=== PATIENT | male | born 1950 | race Caucasian/White ===

== ENCOUNTER 2021-01-30 14:18 | Emergency (ER) | payer MEDICARE, BC ==
[~2021-01-30] VITALS: Ht 182.9 cm; Wt 89.8 kg
[2021-01-30] MEDS ORDERED: NEURONTIN400 MG PO (15:04)
[2021-01-30] MEDS ORDERED: GLYBURIDE5 MG PO (15:04)
[2021-01-30] MEDS ORDERED: METFORMIN HCL500 M2 PO (15:04)
[2021-01-30] MEDS ORDERED: LOSARTAN POTASS25 MG PO (15:04)
[2021-01-30] MEDS ORDERED: HUMIRA40 MG/0.1 (15:04)
[2021-01-30] MEDS ORDERED: ULTRAM50 MG PO (15:04)
[2021-01-30] MEDS ORDERED: JARDIANCE10 MG (15:04)
[2021-01-30] MEDS ORDERED: TETANUS/DIPHTHERIA TOX ADULT 0.5 ML SYR IM ONE (15:30)
[2021-01-30] MEDS ORDERED: TETANUS/DIPHTHERIA TOX ADULT 0.5 ML SYR ONE (15:31)
== END 2021-01-30 16:18 | disposition home or self-care (01) ==
LOC: FSED 15:55
DX: S61.211A Laceration without foreign body of left index finger without damage to nail, initial encounter (principal); W26.0XXA Contact with knife, initial encounter; Y93.G3 Activity, cooking and baking; Y92.000 Kitchen of unspecified non-institutional (private) residence as the place of occurrence of the external cause; I10 Essential (primary) hypertension; E11.9 Type 2 diabetes mellitus without complications; L40.9 Psoriasis, unspecified
CPT/HCPCS: 90471; 90714; 96372; 99283

== ENCOUNTER 2021-09-16 12:30 | Emergency (ER) | payer MEDICARE, BC, OTHER ==
[~2021-09-16] VITALS: Ht 190.5 cm; Wt 86.2 kg
[~2021-09-16 12:30] MED LIST: GLYBURIDE5 MG PO; HUMIRA40 MG/0.1; JARDIANCE10 MG; LOSARTAN POTASS25 MG PO; METFORMIN HCL500 M2 PO; NEURONTIN400 MG PO; ULTRAM50 MG PO
== END 2021-09-16 13:32 | disposition home or self-care (01) ==
LOC: FSED 12:40
DX: S83.92XA Sprain of unspecified site of left knee, initial encounter (principal); W01.0XXA Fall on same level from slipping, tripping and stumbling without subsequent striking against object, initial encounter; Y93.01 Activity, walking, marching and hiking; Y92.89 Other specified places as the place of occurrence of the external cause; I10 Essential (primary) hypertension; E11.9 Type 2 diabetes mellitus without complications; L40.9 Psoriasis, unspecified; M54.9 Dorsalgia, unspecified; G89.29 Other chronic pain; Z87.442 Personal history of urinary calculi
CPT/HCPCS: 99283

== ENCOUNTER 2022-06-13 12:00 | Emergency (ER) | payer MEDICARE, BC, OTHER ==
[~2022-06-13] VITALS: Ht 182.9 cm; Wt 86.2 kg
[2022-06-13] MEDS ORDERED: ACETAMINOPHEN500 MG PO (12:28)
== END 2022-06-13 13:12 | disposition home or self-care (01) ==
LOC: FSED 12:04
DX: S00.83XA Contusion of other part of head, initial encounter (principal); W18.39XA Other fall on same level, initial encounter; Y93.01 Activity, walking, marching and hiking; Y92.89 Other specified places as the place of occurrence of the external cause; I10 Essential (primary) hypertension; E11.9 Type 2 diabetes mellitus without complications; M54.9 Dorsalgia, unspecified; G89.29 Other chronic pain; Z87.442 Personal history of urinary calculi
CPT/HCPCS: 70450; 99283